=== PATIENT | male | born 1945 | race Caucasian/White ===

== ENCOUNTER 2025-04-17 16:57 | Outpatient (CLI) | payer BC, MEDICARE, OTHER ==
[~2025-04-17 16:57] MED LIST: AMLO-101 PO; FINA5TAB11 PO; LORA10TA65 PO; MULT-342 PO; SIMV-42 PO; TAMS-55 PO
[2025-04-17 18:27] LABS: CHOL/HDL RATIO 2.8 (0.00-4.99); CREATININE 0.86 MG/DL (0.60-1.10); LDL CHOLESTEROL 98 MG/DL (50-100); TOTAL CARBON DIOXIDE 28.1 MMOL/L (24-32); eGFR 85 ML/MIN
--- NOTE | 2025-04-17 19:31 | RADIOLOGY REPORT ---
EXAM: DI HAND, COMPLETE (3VW MIN) INDICATION: LEFT HAND PAIN TECHNIQUE: 3 views of the left hand COMPARISON: None FINDINGS/IMPRESSION: No radiographic evidence of an acute osseous abnormality. There is no acute fracture, osseous malalig nment, or aggressive focal osseous lesion. Diffusely decreased bone mineral density.
== END 2025-04-17 23:59 | disposition home or self-care (01) ==
LOC: RAD 16:57
PROVIDERS: ATTEND Internal Medicine
DX: M79.642 Pain in left hand (principal); E78.5 Hyperlipidemia, unspecified
CPT/HCPCS: 36415; 73130; 80053; 80061